=== PATIENT | male | born 1965 | race Caucasian/White ===

== ENCOUNTER 2016-12-13 14:14 | Emergency (ER) | payer SELFPAY ==
[2016-12-13 14:32] VITALS: BP 148/105
--- NOTE | 2016-12-13 14:53 | EDM.PDOC ---
ED HPI GENERAL MEDICAL PROBLEM - General Chief Complaint: Respiratory Problem Stated Complaint: RESPIRATORY Time Seen by Provider: 12/13/16 14:50 Source of Information: Reports: Patient, Family History Limitations: Reports: No Limitations - History of Present Illness INITIAL COMMENTS - FREE TEXT/NARRATIVE: pt arrived with a history of a chronic cough and wheezing. Onset: Gradual Duration: Week(s): Location: Reports: Chest Associated Symptoms: Reports: Shortness of Breath, Other ( wheezy. ) - Related Data Allergies Allergy/AdvReac Type Severity Reaction Status Date / Time No Known Allergies Allergy Verified 12/13/16 14:49 Home Meds: Home Meds Albuterol [Ventolin HFA] 2 puff INH ASDIRECTED 12/13/16 [History] ED ROS GENERAL - Review of Systems Review Of Systems: See Below Constitutional: Reports: No Symptoms HEENT: Reports: No Symptoms Respiratory: Reports: No Symptoms Cardiovascular: Reports: No Symptoms Endocrine: Reports: No Symptoms GI/Abdominal: Reports: No Symptoms : Reports: No Symptoms Musculoskeletal: Reports: No Symptoms Skin: Reports: No Symptoms ED EXAM, GENERAL - Physical Exam Exam: See Below Free Text/Narrative:: pt has been having some sob and wheezing for the past 2 years when he started working in [employer] again. He states this has gradually gotten alot worse and now is very troublesome. He has been using a large amoumt of his inhaler and definitely needs to back off. Exam Limited By: Respiratory Distress General Appearance: Alert, Anxious, Mild Distress Ears: Normal TMs Nose: Normal Inspection Throat/Mouth: Normal Inspection Head: Atraumatic Neck: Normal Inspection Respiratory/Chest: Decreased Breath Sounds, Wheezing, Other ( chest sounds very tight. ) Cardiovascular: Regular Rate, Rhythm GI/Abdominal: Soft, Non-Tender Rectal (Males) Exam: Deferred Back Exam: Normal Inspection Extremities: Normal Inspection Neurological: Alert, Oriented, Normal Cognition Psychiatric: Normal Affect Course - Vital Signs Last Recorded V/S: Last Vital Signs Temp 35.9 C 12/13/16 14:47 Pulse 92 12/13/16 14:47 Resp 18 12/13/16 14:47 BP 148/105 H 12/13/16 14:47 Pulse Ox 97 12/13/16 14:47 - Orders/Labs/Meds Orders: Active Orders 24 hr Category Date Time Status RT Aerosol Therapy [RC] ASDIRECTED Care 12/13/16 14:54 Active Chest 2V [CR] Stat Exams 12/13/16 14:59 Taken Labs: Laboratory Tests 12/13/16 12/13/16 Range/Units 15:01 15:01 WBC 7.7 (4.5-11.0) K/uL RBC 5.45 (4.30-5.90) M/uL Hgb 16.4 H (12.0-15.0) g/dL Hct 47.9 (40.0-54.0) % MCV 88 (80-98) fL MCH 30 (27-31) pg MCHC 34 (32-36) % Plt Count 339 (150-400) K/uL Neut % (Auto) 51 (36-66) % Lymph % (Auto) 27 (24-44) % Churchill % (Auto) 9 H (2-6) % Eos % (Auto) 13 H (2-4) % Baso % (Auto) 1 (0-1) % Sodium 141 (140-148) mmol/L Potassium 4.2 (3.6-5.2) mmol/L Chloride 105 (100-108) mmol/L Carbon Dioxide 27 (21-32) mmol/L Anion Gap 8.6 (5.0-14.0) mmol/L BUN 12 (7-18) mg/dL Creatinine 1.0 (0.8-1.3) mg/dL Est Cr Clr Drug Dosing 98.08 mL/min Estimated GFR (MDRD) > 60 (>60) Glucose 93 (74-106) mg/dL Calcium 9.1 (8.5-10.1) mg/dL Meds: Medications Discontinued Medications Generic Name Dose Route Start Last Admin Trade Name Mathewq PRN Reason Stop Dose Admin Albuterol 2.5 mg 12/13/16 14:54 12/13/16 15:08 Proventil Neb Soln NEB 12/13/16 14:55 2.5 mg ONETIME ONE Administration Methylprednisolone Sodium Succinate 125 mg 12/13/16 15:24 Solu-Medrol IM 12/13/16 15:25 ONETIME ONE - Re-Assessments/Exams Free Text/Narrative Re-Assessment/Exam: 12/13/16 15:43 pt was given solumedrol 125 im. He was given a albuterol neb. He was advised with 13 eosinophils in his wbc that this was most likely allergic. Departure - Departure Time of Disposition: 15:34 Disposition: Home, Self-Care 01 Condition: fair Clinical Impression: Allergic bronchitis, Bronchospasm - Discharge Information Referrals: PCP,None [Primary Care Provider] - Forms: ED Department Discharge Care Plan Goals: push fluids, use the albuterol inhaler 2 puffs q4h, predisone 10mg tabs 3 tabs daily for 3 days 2 tabs daily for 3 days then 1 tab daily for [address] gallegos for allery workup and treament of wheezing. - My Orders Last 24 Hours: My Active Orders 12/13/16 14:54 RT Aerosol Therapy [RC] ASDIRECTED 12/13/16 14:59 Chest 2V [CR] Stat - Assessment/Plan Last 24 Hours: My Active Orders 12/13/16 14:54 RT Aerosol Therapy [RC] ASDIRECTED 12/13/16 14:59 Chest 2V [CR] Stat
[2016-12-13] MEDS ORDERED: Albuterol 0.083% 2.5 MG/3 ML Neb Soln NEB ONE (14:54)
[2016-12-13] MEDS ORDERED: methylPREDNISolone Sodium Succinate 125 MG/2 ML SDV IM ONE (15:24)
--- NOTE | 2016-12-14 08:55 | CR ---
Chest 2V INDICATION: sob wheezy FINDINGS: Negative chest.
== END 2016-12-13 15:49 | disposition home or self-care (01) ==
LOC: JP.ED 14:14
DX: J45.909 Unspecified asthma, uncomplicated (principal)
CPT/HCPCS: 36415; 71020; 80048; 85025; 96372; 99285; J2930; 99283